=== PATIENT | female | born 1985 | race Caucasian/White ===

== ENCOUNTER 2018-06-28 12:06 | Inpatient (IN) ==
[2018-06-28] MEDS ORDERED: Vancomycin Inj 1 GM/200 ML PIGGYBACK IV.SIG ONE (12:53)
[2018-06-28] MEDS ORDERED: Piperacil/Tazo 4.5 GM Premix 4.5 GM/100 ML BAG IV.SIG ONE (12:53)
[2018-06-28] MEDS ORDERED: Vancomycin Inj 1,000 MG in Sodium Chlor 0.9% Inj 250 ML IV.SIG ONE (13:15)
[2018-06-28 13:29] LABS: Baso # (Auto) 0.1 th/mm3 (0.0-0.2); Baso % (Auto) 0.3 % (0.0-2.0); Eos % (Auto) 0.1 % (0.0-4.0); Hematocrit 40.8 % (35.0-46.0); Hemoglobin 13.7 gm/dL (11.6-15.3); Lymph # (Auto) 1.4 th/mm3 (1.0-4.8); Lymph % (Auto) 4.9 % (9.0-44.0); Mean Corpuscular HGB Conc 33.5 % (32.0-36.0); Mean Corpuscular Hemoglobin 30.8 pg (27.0-34.0); Mean Corpuscular Volume 91.9 fL (80.0-100.0); Mean Platelet Volume 6.8 fL (7.0-11.0); Mono # (Auto) 1.3 th/mm3 (0.0-0.9); Mono % (Auto) 4.6 % (0.0-8.0); Neut # (Auto) 25.6 th/mm3 (1.8-7.7); Neut % (Auto) 90.1 % (16.0-70.0); Platelet Count 223 th/mm3 (150-450); Red Blood Count 4.44 mil/mm3 (4.00-5.30); Red Cell Distribution Width 13.7 % (11.6-17.2); White Blood Count 28.4 th/mm3 (4.0-11.0)
--- NOTE | 2018-06-28 13:49 | XR ---
EXAM DATE: 06/28/2018 12:52 PM EDT AGE/SEX: 33 years / Female INDICATIONS: Chest pain. CLINICAL DATA: This is the patient's initial encounter. Patient reports that signs and symptoms have been present for 1 day and indicates a pain score of 5/10. MEDICAL/SURGICAL HISTORY: None. None. COMPARISON: [facility] [place], CHEST SINGLE AP, 02/17/2015. . FINDINGS: A single AP view of the chest demonstrates the lungs to be symmetrically aerated without evidence of mass, infiltrate or effusion. The cardiomediastinal contours are unremarkable. Osseous structures a re intact. CONCLUSION: No acute intrathoracic disease. No significant change. Electronically signed by: Shiraz De La Cruz MD 06/28/2018 1:48 PM EDT
[2018-06-28 13:51] LABS: Alanine Aminotransferase 15 U/L (10-53); Alkaline Phosphatase 96 U/L (45-117); Total Protein 8.4 g/dL (6.4-8.2)
[2018-06-28 13:54] LABS: Albumin 3.7 g/dL (3.4-5.0); Anion Gap 4 meq/L (5-15); Aspartate Aminotransferase 17 U/L (15-37); Blood Urea Nitrogen 11 mg/dL (7-18); Calcium 9.2 mg/dL (8.5-10.1); Carbon Dioxide 25.9 meq/L (21.0-32.0); Chloride 100 meq/L (98-107); Glomerular Filtration Rate 73 mL/min (>89); Glucose,Random 112 mg/dL (74-106); Potassium 4.2 meq/L (3.5-5.1); Sodium 130 meq/L (136-145)
--- NOTE | 2018-06-28 13:55 | ED ---
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 She states that she had injected at the site a few days prior. She also also noticed some scabs on her face which have popped up over the past few days. No chest pain no shortness of breath no abdominal pain no nausea vomiting. States the pain is rapidly worsening, severe, worsens with weightbearing, so she signs symptoms in context as above. Related Data Home Medications Medication Instructions Recorded Confirmed No Known Home Medications 06/28/18 06/28/18 Allergies Allergy/AdvReac Type Severity Reaction Status Date / Time *MDRO Multi-Drug Resistant AdvReac Unknown Uncoded 07/16/16 18:52 Organism Review of Systems ROS: all other systems reviewed are negative PMFSH Medical History Medical History Patient denies medical problems (Acute) Social History Social History Substance History: No History of Abuse Second Hand Smoke Exposure: No Smoking Status: Current every day smoker Tobacco Type: Cigarettes How Often Do You Have a Drink Containing Alcohol: Never Recent Travel in [facility] within the Last 8 Weeks: No Recent Out of Country Travel within the Last 8 Weeks: No Substance Abuse Detail Marijuana: Substance Use Status: Active Route Used 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 Nontoxic in appearance. SKIN: Focused skin assessment warm/dry. Patient has several scabbed nondraining lesions of the knees. Undetermined significance. HEAD: Atraumatic. Normocephalic. EYES: Pupils equal and round. No scleral icterus. No injection or drainage. ENT: No nasal bleeding or discharge. Mucous membranes pink and moist. NECK: Trachea midline. No JVD. CARDIOVASCULAR: Regular rate and rhythm. No murmur appreciated. RESPIRATORY: No accessory muscle use. Clear to auscultation. Breath sounds equal bilaterally. GASTROINTESTINAL: Abdomen soft, non-tender, nondistended. Hepatic and splenic margins not palpable. MUSCULOSKELETAL: No obvious deformities. No clubbing. No cyanosis. Patient's examination of her left ankle is very limited by her pain, she appears comfortable until is palpated. She has what appears to be significant joint effusion, the ankle joint itself is concentrically swollen, red concentrically as well. I do not see any discrete abscess or drainable fluid collection. No skin opening. No lymphadenitis or lymphangitis seen proximal to the ankle. The foot is also swollen as well minimally so probably reactive from the ankle. NEUROLOGICAL: Awake and alert. No obvious cranial nerve deficits. Motor grossly within normal limits. Normal speech. PSYCHIATRIC: Appropriate mood and affect; insight and judgment normal. Course Initial Documented Vital Signs Temperature 98.8 F 06/28/18 12:17 Pulse Rate 113 H 06/28/18 12:17 Respiratory Rate 24 06/28/18 12:17 Blood Pressure 115/75 06/28/18 12:17 Pulse Oximetry 100 06/28/18 12:17 Last Documented Vital Signs Temperature 98.8 F 06/28/18 12:17 Pulse Rate 113 H 06/28/18 12:17 Respiratory Rate 24 06/28/18 12:17 Blood Pressure 115/75 06/28/18 12:17 Pulse Oximetry 100 06/28/18 12:17 Critical Care Time Critical Care Time: Yes Total Critical Care Time: 35 Attestation: Aggregate critical care time was 35 minutes. Time to perform other separately billable procedures was not included in the critical care time. My time did not include minutes spent treating any other patients simultaneously or on activities that did not directly contribute to the patient's treatment. The services I provided to this patient were to treat and/or prevent clinically significant deterioration that could result in: , disability, organ failure I provided critical care services requiring my management, as noted below: Chart data review, documentation time, medication orders and management, vital sign assessments/reviewing monitor data, ordering and reviewing lab tests, ordering and interpreting/reviewing x-rays and diagnostic studies, care of the patient and discussion of the patient with the admitting physicians. Medical Decision Making MDM Narrative Medical decision making narrative: Patient room to the emergency department, given the physical exam findings highly suspect a septic ankle joint. There is no safe approach to this joint in the emergency department is concentrically cellulitic. She was started on Vanco and Zosyn, osteomyelitis is also on the differential as well as bacteremia. Patient has a 28,000 white count adding further credence to the above differentials, she will be admitted will need for patience as well as infectious disease consult, blood cultures drawn, lactic acid negative. She is technically septic is both tachycardic and tachypneic, liter normal saline has been ordered. Aggressive fluid resuscitation irrigated by the normal blood pressure and lactic acid. Patient discussed with Dr. Stauffer, podiatry, agrees with management thus far including MRI vancomycin Zosyn. She was see the patient either late tonight or early tomorrow morning. We will discussed with residents for admission. Medical Screen Exam Complete: Yes Emergency Medical Condition: Yes Lab Data Result diagrams: 06/28/18 13:15 06/28/18 13:15 POC Results POC Urine Results Negative Lab Results 06/28/18 06/28/18 06/28/18 Range/Units 13:12 13:15 13:15 WBC 28.4 H (4.0-11.0) th/mm3 RBC 4.44 (4.00-5.30) mil/mm3 Hgb 13.7 (11.6-15.3) gm/dL Hct 40.8 (35.0-46.0) % MCV 91.9 (80.0-100.0) fL MCH 30.8 (27.0-34.0) pg MCHC 33.5 (32.0-36.0) % RDW 13.7 (11.6-17.2) % Plt Count 223 (150-450) th/mm3 MPV 6.8 L (7.0-11.0) fL Neut % (Auto) 90.1 H (16.0-70.0) % Lymph % (Auto) 4.9 L (9.0-44.0) % Stephenson % (Auto) 4.6 (0.0-8.0) % Eos % (Auto) 0.1 (0.0-4.0) % Baso % (Auto) 0.3 (0.0-2.0) % Neut # (Auto) 25.6 H (1.8-7.7) th/mm3 Lymph # (Auto) 1.4 (1.0-4.8) th/mm3 Stephenson # (Auto) 1.3 H (0.0-0.9) th/mm3 Eos # (Auto) 0.0 (0.0-0.4) th/mm3 Baso # (Auto) 0.1 (0.0-0.2) th/mm3 WBC Differential . Differential Comment Auto diff final Sodium 130 L (136-145) meq/L Potassium 4.2 (3.5-5.1) meq/L Chloride 100 (98-107) meq/L Carbon Dioxide 25.9 (21.0-32.0) meq/L Anion Gap 4 L (5-15) meq/L BUN 11 (7-18) mg/dL Creatinine 0.89 (0.50-1.00) mg/dL Estimated GFR 73 L (>89) mL/min POC Glucose (68-110) mg/dl Random Glucose 112 H (74-106) mg/dL Lactic Acid 1.0 (0.4-2.0) mmol/L Calcium 9.2 (8.5-10.1) mg/dL Total Bilirubin 1.3 H (0.2-1.0) mg/dL AST 17 (15-37) U/L ALT 15 (10-53) U/L Alkaline Phosphatase 96 (45-117) U/L Total Protein 8.4 H (6.4-8.2) g/dL Albumin 3.7 (3.4-5.0) g/dL 06/28/18 Range/Units 14:05 WBC (4.0-11.0) th/mm3 RBC (4.00-5.30) mil/mm3 Hgb (11.6-15.3) gm/dL Hct (35.0-46.0) % MCV (80.0-100.0) fL MCH (27.0-34.0) pg MCHC (32.0-36.0) % RDW (11.6-17.2) % Plt Count (150-450) th/mm3 MPV (7.0-11.0) fL Neut % (Auto) (16.0-70.0) % Lymph % (Auto) (9.0-44.0) % Stephenson % (Auto) (0.0-8.0) % Eos % (Auto) (0.0-4.0) % Baso % (Auto) (0.0-2.0) % Neut # (Auto) (1.8-7.7) th/mm3 Lymph # (Auto) (1.0-4.8) th/mm3 Stephenson # (Auto) (0.0-0.9) th/mm3 Eos # (Auto) (0.0-0.4) th/mm3 Baso # (Auto) (0.0-0.2) th/mm3 WBC Differential Differential Comment Sodium (136-145) meq/L Potassium (3.5-5.1) meq/L Chloride (98-107) meq/L Carbon Dioxide (21.0-32.0) meq/L Anion Gap (5-15) meq/L BUN (7-18) mg/dL Creatinine (0.50-1.00) mg/dL Estimated GFR (>89) mL/min POC Glucose 194 H (68-110) mg/dl Random Glucose (74-106) mg/dL Lactic Acid (0.4-2.0) mmol/L Calcium (8.5-10.1) mg/dL Total Bilirubin (0.2-1.0) mg/dL AST (15-37) U/L ALT (10-53) U/L Alkaline Phosphatase (45-117) U/L Total Protein (6.4-8.2) g/dL Albumin (3.4-5.0) g/dL Imaging Data Radiologist's impression: Ankle MRI 06/28/18 12:52 CONCLUSION: 1. Diffuse nonspecific soft tissue swelling and edema predominantly involving the anterior, medial and lateral aspects of the ankle. 2. The bony structures and tendons are grossly intact. Chest X-Ray 06/28/18 12:52 CONCLUSION: No acute intrathoracic disease. No significant change. Discharge Plan Discharge Disposition Patient Disposition: 30 Still Patient Discharge Details Diagnosis: Sepsis, Septic arthritis Physicians Team ED Provider: Remi Escobar Primary Care Provider: Primary Care Tee,Debby Attending Provider: Josué Sen Other Providers: Ana Stauffer Status ED Status: Admitted Patient
[2018-06-28] MEDS ORDERED: Gadobutrol PF 7.5 MMOL/7.5 ML Vial (for RAD) IV.SIG ONE (14:13)
[2018-06-28] MEDS ORDERED: Sod Chloride 0.9% Inj 1,000 ML IV.SIG SCH (14:45)
--- NOTE | 2018-06-28 15:26 | MR ---
EXAM DATE: 06/28/2018 1:55 PM EDT AGE/SEX: 33 years / Female INDICATIONS: Abscess. CLINICAL DATA: This is the patient's initial encounter. Patient reports that signs and symptoms have been present for 1 day and indicates a pain score of 5/10. MEDICAL/SURGICAL HISTORY: None. None. COMPARISON: No prior exams available for comparison. TECHNIQUE: Multiplanar, multisequence MRI examination was performed with contrast and after the intr avenous administration of 6 ml Gadavist (gadobutrol) contrast as a single exam dose. FINDINGS: Bones: The osseous structures are in normal alignment. No evidence of fracture or bony edema. Joint Spaces: No joint effusion.. The articular cartilage is intact. Tendons: The tendons surrounding the ankle are grossly intact. Ligaments: The lateral and medial ligament complexes are intact. Other: The plantar aponeurosis is grossly unremarkable. The structures in the tarsal tunnel are int act. Soft Tissues: There is nonspecific soft tissue swelling and edema in the subcutaneous soft tissues p redominantly along the anterior lateral medial aspects of the ankle. No definite or significant locul ated fluid collections are seen to suggest a drainable abscess. CONCLUSION: 1. Diffuse nonspecific soft tissue swelling and edema predominantly involving the anterior, medial a nd lateral aspects of the ankle. 2. The bony structures and tendons are grossly intact. Electronically signed by: Shiraz De La Cruz MD 06/28/2018 3:25 PM EDT
[2018-06-28] MEDS ORDERED: Acetaminophen 325 MG Tablet PO PRN (15:37)
[2018-06-28] MEDS: Sod Chloride 0.9% Inj 1,000 ML IV.CONT SCH (15:57)
[2018-06-28] MEDS ORDERED: Vancomycin Consult Pharmacy OTHER PRN (16:16)
--- NOTE | 2018-06-28 18:43 | P.HPFP ---
History of Present Illness Primary Care Physician: No Primary Care Physician <Josué Sen - 06/28/18 21:23> No Primary Care Physician <Robert Peterson - 06/28/18 18:43> Chief Complaint: Ankle pain and swelling <Robert Peterson - 06/28/18 18: 43> History of Present Illness: Patient is a 33-year-old female with a history of IV drug abuse who presents with left ankle pain and swelling after an phentermine into a vein in that ankle. 2 days prior to admission she injected methamphetamine into the vein on her left anterior ankle. Starting this morning she has had increasing pain and swelling. She rates her pain as a 10 out of 10 at this time. Pain is exacerbated by motion, pressure, and movement. She has not found anything that relieves her pain. She states that she cannot move the ankle or toes secondary to pain. She denies numbness or tingling. She does report being cold since arrival to the hospital, but did not denies fever, chills, and night sweats. She denies chest pain, shortness of breath, palpitations, nausea, vomiting. She reports a history of staph infection that led to a hospital stay in the past. She also had bacteremia that led to a 4-1/2-week hospital stay shortly thereafter. She reports testing positive for hepatitis C. She has not had any treatment for this. Her last HIV test was about 2 years ago and was negative. She denies any surgical history. She smokes 4-5 cigarettes/day, denies alcohol use, and uses IV methamphetamine and heroin. <Robert Peterson - 06/28/18 18:43> - Diagnosis (1) Septic arthritis (2) Sepsis (3) IV drug abuse (4) Hepatitis C <Josué Sen - 06/28/18 21:23> (1) Septic arthritis (2) Sepsis (3) IV drug abuse (4) Hepatitis C <Robert Peterson - 06/28/18 18:14> Inpatient Certification: I certify that the inpatient services were ordered in accordance with Medicare regulations governing the order. This includes certification that hospital inpatient services are reasonable and necessary and in the case of services not specified as inpatient-only under 42 CFR 419.22(n), that they are appropriately provided as inpatient services in accordance to with the 2-midnight benchmark under 43 CFR 412.3(e) <Josué Sen 06/28/18 21:23> I certify that the inpatient services were ordered in accordance with Medicare regulations governing the order. This includes certification that hospital inpatient services are reasonable and necessary and in the case of services not specified as inpatient-only under 42 CFR 419.22(n), that they are appropriately provided as inpatient services in accordance to with the 2-midnight benchmark under 43 CFR 412.3(e) <Robert Peterson 06/28/18 18:43> Estimated Total Length of Stay (Days): 2 <Robert Peterson 06/28/18 18: 43> Plans for Post Hospital Care: Home <Robert Peterson 06/28/18 18:43> Review of Systems Constitutional: Denies body ache(s), Denies chills, Denies fatigue, Denies fever (s), Denies night sweats <Robert Peterson 06/28/18 18:43> Eyes: Denies change in vision <Robert Peterson 06/28/18 18:43> Ears, Nose, Mouth, and Throat: Denies abnormal hearing <Robert Peterson 06/28/18 18:43> Cardiovascular: Denies chest pain, Denies rapid, pounding, or irregular heartbeat <Robert Peterson 06/28/18 18:43> Respiratory: Denies shortness of breath <Robert Peterson 06/28/18 18:43 > Gastrointestinal: Denies abdominal pain, Denies change in bowel habits, Denies nausea, Denies vomiting <Robert Peterson 06/28/18 18:43> PMFSH - History History Provided By: Patient <Robert Peterson 06/28/18 18:43> - Medical History Medical History: Medical History (Last Updated 06/28/18 @ 12:30 by Jenifer Del Rosario) Patient denies medical problems <Josué Sen 06/28/18 21:23> Medical History (Last Updated 06/28/18 @ 12:30 by Jenifer Del Rosario) Patient denies medical problems <Robert Peterson 06/28/18 18:43> - Tobacco History Second Hand Smoke Exposure: No <Robert Peterson 06/28/18 18:43> Tobacco Use In Past 30 Days: Yes <Robert Peterson 06/28/18 18:43> Smoking Status: Current every day smoker <Robert Peterson 06/28/18 18: 43> Tobacco Type: Cigarettes <Robert Peterson 06/28/18 18:43> - Alcohol History How Often Do You Have a Drink Containing Alcohol: Never <Robert Peterson 06/28/18 18:43> - Substance Use History Substance History: No History of Abuse <Robert Peterson 06/28/18 18:43> - Substance Use Type Marijuana Status: Active <Robert Peterson 06/28/18 18:43> Route Used: By Mouth <Robert Peterson 06/28/18 18:43> Methamphetamine Status: Active <Robert Peterson 06/28/18 18:43> - Travel History Recent Travel in the [place] Within the Last 8 Weeks: No <Robert Peterson 06/28/18 18:43> Recent Travel Out of the Country Within the Last 8 Weeks: No <Robert Peterson 06/28/18 18:43> - Immunization History Tetanus Immunization: Unsure <Robert Peterson 06/28/18 18:43> Medications and Allergies Allergies Allergy/AdvReac Type Severity Reaction Status Date / Time *MDRO Multi-Drug Resistant AdvReac Unknown Uncoded 07/16/16 18:52 Organism <Josué Sen 06/28/18 21:23> Home Medications Medication Instructions Recorded Confirmed Type No Known Home Medications 06/28/18 06/28/18 History <Josué Sen 06/28/18 21:23> Active Medications: Active Medications Acetaminophen (Tylenol) 650 mg PO Q4H PRN PRN Reason: Temp > 100.4 Sodium Chloride (Ns Inj) 1,000 mls @ 100 mls/hr IV.CONT .Q10H CL Last Admin: 06/28/18 15:57 Dose: 100 mls/hr Piperacillin/Tazobactam/Dextrose (Zosyn 4.5 Gm Premix) 4.5 gm in 100 mls @ 200 mls/hr IV.SIG Q6H CL Vancomycin HCl 1,000 mg/ (Sodium Chloride) 250 mls @ 250 mls/hr IV.SIG Q12H CL Miscellaneous Information ([facility] Ordered Lab Info) 0 each OTHER ONCE ONE Stop: 06/30/18 13:46 Morphine Sulfate (Morphine Inj) 2 mg IV.PUSH Q3H PRN PRN Reason: PAIN SCALE 6 TO 10 Ondansetron HCl (Zofran Inj) 4 mg IV.PUSH Q6H PRN PRN Reason: NAUSEA OR VOMITING Pharmacy Profile Note (Vancomycin Consult Pharmacy) 1 each OTHER UNSCH PRN PRN Reason: Pharmacy to dose <Josué Sen - 06/28/18 21:23> Active Medications Acetaminophen (Tylenol) 650 mg PO Q4H PRN PRN Reason: Temp > 100.4 Sodium Chloride (Ns Inj) 1,000 mls @ 100 mls/hr IV.CONT .Q10H CL Last Admin: 06/28/18 15:57 Dose: 100 mls/hr Piperacillin/Tazobactam/Dextrose (Zosyn 4.5 Gm Premix) 4.5 gm in 100 mls @ 200 mls/hr IV.SIG Q6H CL Vancomycin HCl 1,000 mg/ (Sodium Chloride) 250 mls @ 250 mls/hr IV.SIG Q12H CL Miscellaneous Information ([facility] Ordered Lab Info) 0 each OTHER ONCE ONE Stop: 06/30/18 13:46 Ondansetron HCl (Zofran Inj) 4 mg IV.PUSH Q6H PRN PRN Reason: NAUSEA OR VOMITING Pharmacy Profile Note (Vancomycin Consult Pharmacy) 1 each OTHER UNSCH PRN PRN Reason: Pharmacy to dose <Robert Peterson - 06/28/18 18:43> Exam Vital signs: Vital Signs 06/28/18 12:17 06/28/18 15:54 06/28/18 16:00 Temperature 98.8 F Pulse Rate 113 H Respiratory Rate 24 Blood Pressure 115/75 Pulse Oximetry 100 97 97 06/28/18 16:05 06/28/18 20:32 Temperature Pulse Rate 98 H Respiratory Rate 18 Blood Pressure 102/63 Pulse Oximetry 97 Intake & Output 06/28/18 06/28/18 06/29/18 06:59 18:59 06:59 Intake Total 350 / 350 Balance 350 / 350 Weight 61.235 kg Intake: IV 350 / 350 Zosyn 4.5 GM Premix 4.5 gm In 100 / 100 100 ml @ 200 mls/hr IV.SIG ONCE ONE Rx#:[id number] Vancomycin Inj 1,000 MG In NS 250 / 250 Inj 250 ML @ 200 mls/hr IV.SIG ONCE ONE Rx#:[id number] Other: Other Intake Source Saline Solution <Josué Sen - 06/28/18 21:23> Vital Signs 06/28/18 12:17 06/28/18 15:54 06/28/18 16:00 Temperature 98.8 F Pulse Rate 113 H Respiratory Rate 24 Blood Pressure 115/75 Pulse Oximetry 100 97 97 06/28/18 16:05 Temperature Pulse Rate 98 H Respiratory Rate 18 Blood Pressure 102/63 Pulse Oximetry Intake & Output 06/27/18 06/28/18 06/28/18 18:59 06:59 18:59 Intake Total 350 / 350 Balance 350 / 350 Weight 61.235 kg Intake: IV 350 / 350 Zosyn 4.5 GM Premix 4.5 gm In 100 / 100 100 ml @ 200 mls/hr IV.SIG ONCE ONE Rx#:[id number] Vancomycin Inj 1,000 MG In NS 250 / 250 Inj 250 ML @ 200 mls/hr IV.SIG ONCE ONE Rx#:[id number] Other: Other Intake Source Saline Solution <Robert Peterson - 06/28/18 18:43> Narrative: General: Well-developed, alert, and in no acute distress. Appears stated age HEENT: Atraumatic, PERRL, non-icteric sclera and no conjunctival injection, moist mucous membranes. Multiple excoriations on face Neck: Supple, non-tender without masses or lymphadenopathy, trachea midline Cardiac: Regular rate and rhythm without murmurs Pulmonary: Non-labored breathing. Lungs clear to auscultation bilaterally with good air movement Abdomen: Normal bowel sounds, soft and non-tender without rebound or guarding Extremities: Capillary refill less than 2 seconds bilaterally. Concentric, tense erythema and edema to the left ankle. Unable to assess movement of the ankle and foot secondary to pain. <Robert Peterson - 06/28/18 18:43> Results - Labs Result diagrams: 06/28/18 13:15 06/28/18 13:15 <Josué Sen - 06/28/18 21:23> Abnormal lab results 06/28/18 06/28/18 06/28/18 Range/Units 13:15 13:15 13:15 WBC 28.4 H (4.0-11.0) th/mm3 MPV 6.8 L (7.0-11.0) fL Neut % (Auto) 90.1 H (16.0-70.0) % Lymph % (Auto) 4.9 L (9.0-44.0) % Neut # (Auto) 25.6 H (1.8-7.7) th/mm3 Hardin # (Auto) 1.3 H (0.0-0.9) th/mm3 Sodium 130 L (136-145) meq/L Anion Gap 4 L (5-15) meq/L Estimated GFR 73 L (>89) mL/min POC Glucose (68-110) mg/dl Random Glucose 112 H (74-106) mg/dL Total Bilirubin 1.3 H (0.2-1.0) mg/dL C-Reactive Protein 16.00 H (0.00-0.30) mg/dL Total Protein 8.4 H (6.4-8.2) g/dL 06/28/18 Range/Units 14:05 WBC (4.0-11.0) th/mm3 MPV (7.0-11.0) fL Neut % (Auto) (16.0-70.0) % Lymph % (Auto) (9.0-44.0) % Neut # (Auto) (1.8-7.7) th/mm3 Hardin # (Auto) (0.0-0.9) th/mm3 Sodium (136-145) meq/L Anion Gap (5-15) meq/L Estimated GFR (>89) mL/min POC Glucose 194 H (68-110) mg/dl Random Glucose (74-106) mg/dL Total Bilirubin (0.2-1.0) mg/dL C-Reactive Protein (0.00-0.30) mg/dL Total Protein (6.4-8.2) g/dL Short CBC 06/28/18 Range/Units 13:15 WBC 28.4 H (4.0-11.0) th/mm3 Hgb 13.7 (11.6-15.3) gm/dL Hct 40.8 (35.0-46.0) % Plt Count 223 (150-450) th/mm3 BMP 06/28/18 13:15 Sodium 130 L Potassium 4.2 Chloride 100 Carbon Dioxide 25.9 BUN 11 Creatinine 0.89 Calcium 9.2 Liver Function 06/28/18 Range/Units 13:15 Total Bilirubin 1.3 H (0.2-1.0) mg/dL AST 17 (15-37) U/L ALT 15 (10-53) U/L Alkaline Phosphatase 96 (45-117) U/L Albumin 3.7 (3.4-5.0) g/dL <Josué Sen - 06/28/18 21:23> Abnormal lab results 06/28/18 06/28/18 06/28/18 Range/Units 13:15 13:15 13:15 WBC 28.4 H (4.0-11.0) th/mm3 MPV 6.8 L (7.0-11.0) fL Neut % (Auto) 90.1 H (16.0-70.0) % Lymph % (Auto) 4.9 L (9.0-44.0) % Neut # (Auto) 25.6 H (1.8-7.7) th/mm3 Hardin # (Auto) 1.3 H (0.0-0.9) th/mm3 Sodium 130 L (136-145) meq/L Anion Gap 4 L (5-15) meq/L Estimated GFR 73 L (>89) mL/min POC Glucose (68-110) mg/dl Random Glucose 112 H (74-106) mg/dL Total Bilirubin 1.3 H (0.2-1.0) mg/dL C-Reactive Protein 16.00 H (0.00-0.30) mg/dL Total Protein 8.4 H (6.4-8.2) g/dL 06/28/18 Range/Units 14:05 WBC (4.0-11.0) th/mm3 MPV (7.0-11.0) fL Neut % (Auto) (16.0-70.0) % Lymph % (Auto) (9.0-44.0) % Neut # (Auto) (1.8-7.7) th/mm3 Hardin # (Auto) (0.0-0.9) th/mm3 Sodium (136-145) meq/L Anion Gap (5-15) meq/L Estimated GFR (>89) mL/min POC Glucose 194 H (68-110) mg/dl Random Glucose (74-106) mg/dL Total Bilirubin (0.2-1.0) mg/dL C-Reactive Protein (0.00-0.30) mg/dL Total Protein (6.4-8.2) g/dL Short CBC 06/28/18 Range/Units 13:15 WBC 28.4 H (4.0-11.0) th/mm3 Hgb 13.7 (11.6-15.3) gm/dL Hct 40.8 (35.0-46.0) % Plt Count 223 (150-450) th/mm3 BMP 06/28/18 13:15 Sodium 130 L Potassium 4.2 Chloride 100 Carbon Dioxide 25.9 BUN 11 Creatinine 0.89 Calcium 9.2 Liver Function 06/28/18 Range/Units 13:15 Total Bilirubin 1.3 H (0.2-1.0) mg/dL AST 17 (15-37) U/L ALT 15 (10-53) U/L Alkaline Phosphatase 96 (45-117) U/L Albumin 3.7 (3.4-5.0) g/dL <Robert Peterson - 06/28/18 18:43> - Imaging Impressions Ankle MRI 06/28/18 12:52 CONCLUSION: 1. Diffuse nonspecific soft tissue swelling and edema predominantly involving the anterior, medial and lateral aspects of the ankle. 2. The bony structures and tendons are grossly intact. Chest X-Ray 06/28/18 12:52 CONCLUSION: No acute intrathoracic disease. No significant change. <Josué Sen - 06/28/18 21:23> Impressions Ankle MRI 06/28/18 12:52 CONCLUSION: 1. Diffuse nonspecific soft tissue swelling and edema predominantly involving the anterior, medial and lateral aspects of the ankle. 2. The bony structures and tendons are grossly intact. Chest X-Ray 06/28/18 12:52 CONCLUSION: No acute intrathoracic disease. No significant change. <Robert Peterson - 06/28/18 18:43> Caprini VTE Risk Assessment Caprini VTE Risk Assessment: Moderate/High Risk (score >= 2) <Robert Peterson - 06/28/18 18:43> VTE Mechanical Exception: LE injury/wound <Robert Peterson - 06/28/18 18: 43> Caprini Risk Assessment Model: Point Value = 1 Point Value = 2 Point Value = 3 Point Value = 5 Age 41-60 Minor surgery BMI > 25 kg/m2 Swollen legs Varicose veins or History of unexplained or recurrent spontaneous Oral contraceptives or hormone replacement Sepsis (< 1 month) Serious lung disease, including pneumonia (< 1 month) Abnormal pulmonary function Acute myocardial infarction Congestive heart failure (< 1 month) History of inflammatory bowel disease Medical patient at bed rest Age 61-74 Arthroscopic surgery Major open surgery (> 45 min) Laparoscopic surgery (> 45 min) Malignancy Confined to bed (> 72 hours) Immobilizing plaster cast Central venous access Age >= 75 History of VTE Family history of VTE Factor V Leiden Prothrombin [id number] Lupus anticoagulant Anticardiolipin antibodies Elevated serum homocysteine Heparin-induced thrombocytopenia Other congenital or acquired thrombophilia Stroke (< 1 month) Elective arthroplasty Hip, pelvis, or leg fracture Acute spinal cord injury (< 1 month) <Josué Sen - 06/28/18 21:23> Point Value = 1 Point Value = 2 Point Value = 3 Point Value = 5 Age 41-60 Minor surgery BMI > 25 kg/m2 Swollen legs Varicose veins or History of unexplained or recurrent spontaneous Oral contraceptives or hormone replacement Sepsis (< 1 month) Serious lung disease, including pneumonia (< 1 month) Abnormal pulmonary function Acute myocardial infarction Congestive heart failure (< 1 month) History of inflammatory bowel disease Medical patient at bed rest Age 61-74 Arthroscopic surgery Major open surgery (> 45 min) Laparoscopic surgery (> 45 min) Malignancy Confined to bed (> 72 hours) Immobilizing plaster cast Central venous access Age >= 75 History of VTE Family history of VTE Factor V Leiden Prothrombin [id number] Lupus anticoagulant Anticardiolipin antibodies Elevated serum homocysteine Heparin-induced thrombocytopenia Other congenital or acquired thrombophilia Stroke (< 1 month) Elective arthroplasty Hip, pelvis, or leg fracture Acute spinal cord injury (< 1 month) <Robert Peterson J - 06/28/18 18:43> Prophylaxis Regimen: Total Risk Factor Score Risk Level Prophylaxis Regimen 0-1 Low Early ambulation 2 Moderate Order ONE of the following: *Sequential Compression Device (SCD) *Heparin 5000 units SQ BID 3-4 Higher Order ONE of the following medications: *Heparin 5000 units SQ TID *Enoxaparin/Lovenox 40 mg SQ daily (WT < 150 kg, CrCl > 30 mL/min) *Enoxaparin/Lovenox 30 mg SQ daily (WT < 150 kg, CrCl > 10-29 mL/min) *Enoxaparin/Lovenox 30 mg SQ BID (WT < 150 kg, CrCl > 30 mL/min) AND/OR *Sequential Compression Device (SCD) 5 or more Highest Order ONE of the following medications: *Heparin 5000 units SQ TID (Preferred with Epidurals) *Enoxaparin/Lovenox 40 mg SQ daily (WT < 150 kg, CrCl > 30 mL/min) *Enoxaparin/Lovenox 30 mg SQ daily (WT < 150 kg, CrCl > 10-29 mL/min) *Enoxaparin/Lovenox 30 mg SQ BID (WT < 150 kg, CrCl > 30 mL/min) AND *Sequential Compression Device (SCD) <Josué Sen K - 06/28/18 21:23> Total Risk Factor Score Risk Level Prophylaxis Regimen 0-1 Low Early ambulation 2 Moderate Order ONE of the following: *Sequential Compression Device (SCD) *Heparin 5000 units SQ BID 3-4 Higher Order ONE of the following medications: *Heparin 5000 units SQ TID *Enoxaparin/Lovenox 40 mg SQ daily (WT < 150 kg, CrCl > 30 mL/min) *Enoxaparin/Lovenox 30 mg SQ daily (WT < 150 kg, CrCl > 10-29 mL/min) *Enoxaparin/Lovenox 30 mg SQ BID (WT < 150 kg, CrCl > 30 mL/min) AND/OR *Sequential Compression Device (SCD) 5 or more Highest Order ONE of the following medications: *Heparin 5000 units SQ TID (Preferred with Epidurals) *Enoxaparin/Lovenox 40 mg SQ daily (WT < 150 kg, CrCl > 30 mL/min) *Enoxaparin/Lovenox 30 mg SQ daily (WT < 150 kg, CrCl > 10-29 mL/min) *Enoxaparin/Lovenox 30 mg SQ BID (WT < 150 kg, CrCl > 30 mL/min) AND *Sequential Compression Device (SCD) <Robert Peterson - 06/28/18 18:43> Assessment and Plan - Assessment (1) Septic arthritis Code(s): M00.9 - Pyogenic arthritis, unspecified Status: Acute (2) Sepsis Code(s): A41.9 - Sepsis, unspecified organism Status: Acute (3) IV drug abuse Code(s): F19.10 - Other psychoactive substance abuse, uncomplicated Status: Acute (4) Hepatitis C Code(s): B19.20 - Unspecified viral hepatitis C without hepatic coma Status: Acute <Josué Sen Mike - 06/28/18 21:23> (1) Septic arthritis Code(s): M00.9 - Pyogenic arthritis, unspecified Status: Acute (2) Sepsis Code(s): A41.9 - Sepsis, unspecified organism Status: Acute (3) IV drug abuse Code(s): F19.10 - Other psychoactive substance abuse, uncomplicated Status: Acute (4) Hepatitis C Code(s): B19.20 - Unspecified viral hepatitis C without hepatic coma Status: Acute <Robert Peterson - 06/28/18 18:14> - Assessment and Plan Cellulitis/septic ankle/Sepsis -MRI showed anterior, lateral, and medial inflammation -Leukocytosis of 28 and heart rate greater than 90, meet SIRS criteria with likely source -Podiatry has been consulted -Continue Vanco and Zosyn started in the ED -Morphine 2 mg IV every 3 hours as needed for pain -Fluids as below due to potential sepsis -Blood cultures drawn in the ED IV drug abuse -History noticeable for methamphetamine and heroin use -HIV testing ordered Hepatitis C -Tested positive at prior hospitalization -LFTs normal today -Hepatitis panel ordered Fluids: Normal saline at 100 cc/h Electrolytes: monitor and replete as needed Nutrition: NPO until cleared by podiatry GI prophylaxis: not indicated VTE prophylaxis: No pharmacologic prophylaxis at this time due to potential intervention by podiatry. SCD on right leg. Disposition: Case management for possible rehab from [facility] <NicholasRobert J - 06/28/18 18:43> - Attending Attestation The exam, history, and the medical decision-making described in the above note were completed with the assistance of the resident physician. I reviewed and agree with the findings presented. I attest that I had a [id number] encounter with the patient on the same day, and personally performed and documented my assessment and findings in the medical record. 33 yo F admitted for L ankle septic arthritis. exquisitely tender left ankle with visible injection sites elsewhere, very poor dentition, and many scabs crusting over face. hx of IVDU and infection at known recent injection site. MRI neg for osteo. on vanc/zosyn with podiatry consult pending (contacted from ED). Known HepC but no primary care at the moment. Will work with CM. <Josué Sen - 06/28/18 21:23>
[2018-06-28] MEDS: Piperacil/Tazo 4.5 GM Premix 4.5 GM/100 ML BAG IV.SIG SCH (21:52)
[2018-06-28] MEDS: Morphine Sulfate Inj 2 MG/ML Vial IV.PUSH PRN (22:09)
[2018-06-28 22:48] LABS: Hepatitis A IgM Antibody Nonreactive (Nonreactive); Hepatitits B Surface Antigen Nonreactive (Nonreactive)
[2018-06-29] MEDS: Sod Chloride 0.9% Inj 1,000 ML IV.CONT SCH ×4 (00:28→22:58)
[2018-06-29] MEDS: Morphine Sulfate Inj 2 MG/ML Vial IV.PUSH PRN ×8 (00:51→22:54)
[2018-06-29] MEDS: Vancomycin Inj 1,000 MG in Sodium Chlor 0.9% Inj 250 ML IV.SIG SCH ×2 (02:24→14:37)
[2018-06-29] MEDS: Piperacil/Tazo 4.5 GM Premix 4.5 GM/100 ML BAG IV.SIG SCH ×4 (02:24→19:38)
[2018-06-29 08:02] LABS: Baso % (Auto) 0.2 % (0.0-2.0); Eos # (Auto) 0.1 th/mm3 (0.0-0.4); Eos % (Auto) 0.3 % (0.0-4.0); Hematocrit 32.2 % (35.0-46.0); Lymph # (Auto) 1.1 th/mm3 (1.0-4.8); Lymph % (Auto) 4.5 % (9.0-44.0); Mean Corpuscular HGB Conc 34.1 % (32.0-36.0); Mean Corpuscular Hemoglobin 30.8 pg (27.0-34.0); Mean Corpuscular Volume 90.4 fL (80.0-100.0); Mean Platelet Volume 7.6 fL (7.0-11.0); Mono # (Auto) 1.5 th/mm3 (0.0-0.9); Mono % (Auto) 6.2 % (0.0-8.0); Neut % (Auto) 88.8 % (16.0-70.0); Platelet Count 192 th/mm3 (150-450); Red Blood Count 3.56 mil/mm3 (4.00-5.30); Red Cell Distribution Width 13.5 % (11.6-17.2); White Blood Count 23.7 th/mm3 (4.0-11.0)
[2018-06-29 08:35] LABS: Anion Gap 9 meq/L (5-15); Blood Urea Nitrogen 9 mg/dL (7-18); Calcium 8.5 mg/dL (8.5-10.1); Carbon Dioxide 22.5 meq/L (21.0-32.0); Chloride 105 meq/L (98-107); Glomerular Filtration Rate Greater Than 89 mL/min (>89); Glucose,Random 86 mg/dL (74-106); Potassium 3.7 meq/L (3.5-5.1); Sodium 136 meq/L (136-145)
--- NOTE | 2018-06-29 10:05 | ECG ---
Date Performed: 06/28/2018 Time Performed: 13:29:10 PTAGE: 33 years EKG: Sinus rhythm NORMAL ECG INTERPRETATION BASED ON A DEFAULT AGE OF 39 YEARS NO PREVIOUS TRACING DOCTOR: Lina Ruth Interpretating Date/Time 06/29/2018 10:03:07
[2018-06-29] MEDS ORDERED: Lidocaine 1% Inj 50 ML Vial ONE (10:09)
--- NOTE | 2018-06-29 10:55 | P.CON ---
History of Present Illness Service: Foot and ankle surgery/podiatry Consult date: 06/29/18 Primary Care Provider: No Primary Care Physician Family Provider: No Primary Care Physician Chief Complaint: Ankle pain and swelling History of Present Illness: History of IV drug use who presented to the emergency department with painful swollen left ankle. Patient states she had been injecting methamphetamine a few days ago. Patient states she noticed new scabbing to her face. She denies any nausea vomiting fevers or chills she does report extreme pain to left ankle. Review of Systems Constitutional: Denies chills, Denies fatigue, Denies fever(s), Denies night sweats Musculoskeletal: Reports joint pain, Reports joint swelling Comments: Joint swelling and joint pain to left ankle Skin/Breast: Reports changing lesions, Reports non-healing lesions PMFSH - History History Provided By: Patient - Medical History Medical History: Medical History (Last Reviewed 06/29/18 @ 10:50 by Ana Stauffer DPM) Patient denies medical problems - Tobacco History Second Hand Smoke Exposure: Yes Tobacco Use In Past 30 Days: Yes Smoking Status: Never smoker Tobacco Type: Cigarettes - Alcohol History How Often Do You Have a Drink Containing Alcohol: Never - Substance Use History Substance History: No History of Abuse, Active Abuse - Substance Use Type Marijuana Status: Active Route Used: By Mouth Methamphetamine Status: Active Heroin Status: Active Route Used: Intravenously Frequency: every day Last Used: today Reason for Use: Get High - Travel History Recent Travel in the [place] Within the Last 8 Weeks: No Recent Travel Out of the Country Within the Last 8 Weeks: No - Immunization History Tetanus Immunization: Unable to Assess Hx Influenza Vaccine This Season: No Medications and Allergies Active Medications: Active Medications Acetaminophen (Tylenol) 650 mg PO Q4H PRN PRN Reason: Temp > 100.4 Sodium Chloride (Ns Inj) 1,000 mls @ 100 mls/hr IV.CONT .Q10H CL Last Admin: 06/29/18 02:23 Dose: Not Given Piperacillin/Tazobactam/Dextrose (Zosyn 4.5 Gm Premix) 4.5 gm in 100 mls @ 200 mls/hr IV.SIG Q6H CL Last Infusion: 06/29/18 09:20 Dose: Infused Vancomycin HCl 1,000 mg/ (Sodium Chloride) 250 mls @ 250 mls/hr IV.SIG Q12H CL Last Infusion: 06/29/18 04:20 Dose: Infused Miscellaneous Information ([facility] [place] [facility] Ordered Lab Info) 0 each OTHER ONCE ONE Stop: 06/30/18 13:46 Morphine Sulfate (Morphine Inj) 2 mg IV.PUSH Q3H PRN PRN Reason: PAIN SCALE 6 TO 10 Last Admin: 06/29/18 07:25 Dose: 2 mg Ondansetron HCl (Zofran Inj) 4 mg IV.PUSH Q6H PRN PRN Reason: NAUSEA OR VOMITING Pharmacy Profile Note (Vancomycin Consult Pharmacy) 1 each OTHER UNSCH PRN PRN Reason: Pharmacy to dose Allergies Allergy/AdvReac Type Severity Reaction Status Date / Time *MDRO Multi-Drug Resistant AdvReac Unknown Uncoded 07/16/16 18:52 Organism Home Medications Medication Instructions Recorded Confirmed Type No Known Home Medications 06/28/18 06/28/18 History Physical Exam Vital signs: Vital Signs 06/28/18 12:17 06/28/18 15:54 06/28/18 16:00 Temperature 98.8 F Pulse Rate 113 H Respiratory Rate 24 Blood Pressure 115/75 Pulse Oximetry 100 97 97 06/28/18 16:05 06/28/18 20:00 06/28/18 20:32 Temperature 99.0 F Pulse Rate 98 H 101 H Respiratory Rate 18 18 Blood Pressure 102/63 94/55 L Pulse Oximetry 99 97 06/29/18 00:00 06/29/18 04:00 06/29/18 07:43 Temperature 98.4 F 98.2 F Pulse Rate 88 99 H Respiratory Rate 20 20 Blood Pressure 105/57 L 114/70 Pulse Oximetry 100 95 95 06/29/18 08:00 06/29/18 10:36 Temperature 98.5 F Pulse Rate 79 Respiratory Rate 21 Blood Pressure 107/57 L Pulse Oximetry 98 98 Intake & Output 06/28/18 06/29/18 06/29/18 18:59 06:59 18:59 Intake Total 350 / 350 1450 / 1450 100 / 100 Balance 350 / 350 1450 / 1450 100 / 100 Weight 61.235 kg 62.5 kg Intake: IV 350 / 350 1450 / 1450 100 / 100 NS Inj 1,000 ML @ 100 mls/hr IV 1000 / 1000 .CONT .Q10H [facility] Rx#:[id number] Zosyn 4.5 GM Premix 4.5 gm In 100 / 100 200 / 200 100 / 100 100 ml @ 200 mls/hr IV.SIG Q6H CL Rx#:[id number] Vancomycin Inj 1,000 MG In NS 250 / 250 250 / 250 Inj 250 ML @ 250 mls/hr IV.SIG Q12H CL Rx#:[id number] Oral 0 / 0 Other: Other Intake Source Saline Solution # Voids 6 Weight On Admission 62.3 kg Narrative: Lower extremity physical exam: Vascular: Dorsalis pedis 2/4, posterior tibial 2/4. Capillary refill time within normal limits to digits X5 bilateral foot. Edema present to left ankle and foot Neuro: Gross sensation intact to bilateral lower extremity. Pinpoint sensation intact. No hyperalgesia noted to bilateral lower extremity Dermatology: Increased redness and erythema noted to left ankle. Dorsal injection site noted with no drainage. No fluctuance or crepitance noted to left ankle joint. Musculoskeletal: Tender to palpation to left ankle globally. Tenderness on passive range of motion, pain on active range of motion. Assessment and Plan - Plan 33-year-old female with septic left ankle, cellulitis to left ankle Patient examined and evaluated with all questions answered Bedside joint aspiration performed 1 cc joint aspirate sent and culture tube to micro No palpable abscess, no abscess noted on MRI White count trending down No surgical intervention planned at this point in time Rosendo to left ankle daily Will sign out to Dr. Donald who will take over care tomorrow Description of procedure: Consent signed and obtained by patient, left ankle aspiration. 20 cc 2% lidocaine plain infiltrated about left ankle and ankle block fashion. Betadine prep to lateral gutter of left ankle. 18-gauge needle with 10 cc syringe utilized to aspirate joint fluid from the lateral aspect of ankle. Joint fluid sent to micro. Left ankle dressed with dry sterile dressing.
--- NOTE | 2018-06-29 11:21 | P.PNFP ---
Subjective Interval history: No acute events overnight. Remains afebrile. Vitals stable. Patient seen and examined this AM. Patient endorses continued pain of her left ankle. Denies fevers or chills. She otherwise does not report specific complaints. <EmeliaulissesluisaJohann - 06/29/18 11:21> Results - Labs Result diagrams: 06/29/18 07:10 06/29/18 07:10 <Josué Sen - 06/29/18 17:56> Abnormal lab results 06/28/18 06/29/18 Range/Units 20:47 07:10 WBC 23.7 H (4.0-11.0) th/mm3 RBC 3.56 L (4.00-5.30) mil/mm3 Hgb 11.0 L D (11.6-15.3) gm/dL Hct 32.2 L (35.0-46.0) % Neut % (Auto) 88.8 H (16.0-70.0) % Lymph % (Auto) 4.5 L (9.0-44.0) % Neut # (Auto) 21.0 H (1.8-7.7) th/mm3 [place] # (Auto) 1.5 H (0.0-0.9) th/mm3 Hep C IgG Ab Reactive H (Nonreactive) Short CBC 06/29/18 Range/Units 07:10 WBC 23.7 H (4.0-11.0) th/mm3 Hgb 11.0 L D (11.6-15.3) gm/dL Hct 32.2 L (35.0-46.0) % Plt Count 192 (150-450) th/mm3 [facility] 06/29/18 07:10 Sodium 136 Potassium 3.7 Chloride 105 Carbon Dioxide 22.5 BUN 9 Creatinine 0.63 Calcium 8.5 <Josué Sen - 06/29/18 17:56> Abnormal lab results 06/28/18 06/28/18 06/28/18 Range/Units 13:15 13:15 13:15 WBC 28.4 H (4.0-11.0) th/mm3 RBC (4.00-5.30) mil/mm3 Hgb (11.6-15.3) gm/dL Hct (35.0-46.0) % MPV 6.8 L (7.0-11.0) fL Neut % (Auto) 90.1 H (16.0-70.0) % Lymph % (Auto) 4.9 L (9.0-44.0) % Neut # (Auto) 25.6 H (1.8-7.7) th/mm3 [place] # (Auto) 1.3 H (0.0-0.9) th/mm3 Sodium 130 L (136-145) meq/L Anion Gap 4 L (5-15) meq/L Estimated GFR 73 L (>89) mL/min POC Glucose (68-110) mg/dl Random Glucose 112 H (74-106) mg/dL Total Bilirubin 1.3 H (0.2-1.0) mg/dL C-Reactive Protein 16.00 H (0.00-0.30) mg/dL Total Protein 8.4 H (6.4-8.2) g/dL Hep C IgG Ab (Nonreactive) 06/28/18 06/28/18 06/29/18 Range/Units 14:05 20:47 07:10 WBC 23.7 H (4.0-11.0) th/mm3 RBC 3.56 L (4.00-5.30) mil/mm3 Hgb 11.0 L D (11.6-15.3) gm/dL Hct 32.2 L (35.0-46.0) % MPV (7.0-11.0) fL Neut % (Auto) 88.8 H (16.0-70.0) % Lymph % (Auto) 4.5 L (9.0-44.0) % Neut # (Auto) 21.0 H (1.8-7.7) th/mm3 [place] # (Auto) 1.5 H (0.0-0.9) th/mm3 Sodium (136-145) meq/L Anion Gap (5-15) meq/L Estimated GFR (>89) mL/min POC Glucose 194 H (68-110) mg/dl Random Glucose (74-106) mg/dL Total Bilirubin (0.2-1.0) mg/dL C-Reactive Protein (0.00-0.30) mg/dL Total Protein (6.4-8.2) g/dL Hep C IgG Ab Reactive H (Nonreactive) Short CBC 06/28/18 06/29/18 Range/Units 13:15 07:10 WBC 28.4 H 23.7 H (4.0-11.0) th/mm3 Hgb 13.7 11.0 L D (11.6-15.3) gm/dL Hct 40.8 32.2 L (35.0-46.0) % Plt Count 223 192 (150-450) th/mm3 BMP 06/28/18 06/29/18 13:15 07:10 Sodium 130 L 136 Potassium 4.2 3.7 Chloride 100 105 Carbon Dioxide 25.9 22.5 BUN 11 9 Creatinine 0.89 0.63 Calcium 9.2 8.5 Liver Function 06/28/18 Range/Units 13:15 Total Bilirubin 1.3 H (0.2-1.0) mg/dL AST 17 (15-37) U/L ALT 15 (10-53) U/L Alkaline Phosphatase 96 (45-117) U/L Albumin 3.7 (3.4-5.0) g/dL <Johann Schmitz - 06/29/18 11:21> - Imaging Impressions Ankle MRI 06/28/18 12:52 CONCLUSION: 1. Diffuse nonspecific soft tissue swelling and edema predominantly involving the anterior, medial and lateral aspects of the ankle. 2. The bony structures and tendons are grossly intact. Chest X-Ray 06/28/18 12:52 CONCLUSION: No acute intrathoracic disease. No significant change. <Johann Schmitz - 06/29/18 11:21> Physical Exam Vital signs: Vital Signs 06/28/18 20:00 06/28/18 20:32 06/29/18 00:00 Temperature 99.0 F 98.4 F Pulse Rate 101 H 88 Respiratory Rate 18 20 Blood Pressure 94/55 L 105/57 L Pulse Oximetry 99 97 100 06/29/18 04:00 06/29/18 07:43 06/29/18 08:00 Temperature 98.2 F 98.5 F Pulse Rate 99 H 79 Respiratory Rate 20 21 Blood Pressure 114/70 107/57 L Pulse Oximetry 95 95 98 06/29/18 10:36 06/29/18 12:00 06/29/18 16:00 Temperature 97.8 F 98.5 F Pulse Rate 101 H 106 H Respiratory Rate 18 18 Blood Pressure 95/60 L 119/71 Pulse Oximetry 98 99 97 Intake & Output 06/28/18 06/29/18 06/29/18 18:59 06:59 18:59 Intake Total 350 / 350 1450 / 1450 2450 / 2450 Balance 350 / 350 1450 / 1450 2450 / 2450 Weight 61.235 kg 62.5 kg Intake: IV 350 / 350 1450 / 1450 2450 / 2450 NS Inj 1,000 ML @ 100 mls/hr IV 1000 / 1000 2000 / 2000 .CONT .Q10H [facility] Rx#:[id number] Zosyn 4.5 GM Premix 4.5 gm In 100 / 100 200 / 200 200 / 200 100 ml @ 200 mls/hr IV.SIG Q6H [facility] Rx#:[id number] Vancomycin Inj 1,000 MG In NS 250 / 250 250 / 250 250 / 250 Inj 250 ML @ 250 mls/hr IV.SIG Q12H [facility] Rx#:[id number] Oral 0 / 0 Other: Other Intake Source Saline Solution # Voids 6 Weight On Admission 62.3 kg <Josué Sen - 06/29/18 17:56> Vital Signs 06/28/18 12:17 06/28/18 15:54 06/28/18 16:00 Temperature 98.8 F Pulse Rate 113 H Respiratory Rate 24 Blood Pressure 115/75 Pulse Oximetry 100 97 97 06/28/18 16:05 06/28/18 20:00 06/28/18 20:32 Temperature 99.0 F Pulse Rate 98 H 101 H Respiratory Rate 18 18 Blood Pressure 102/63 94/55 L Pulse Oximetry 99 97 06/29/18 00:00 06/29/18 04:00 06/29/18 07:43 Temperature 98.4 F 98.2 F Pulse Rate 88 99 H Respiratory Rate 20 20 Blood Pressure 105/57 L 114/70 Pulse Oximetry 100 95 95 06/29/18 08:00 06/29/18 10:36 Temperature 98.5 F Pulse Rate 79 Respiratory Rate 21 Blood Pressure 107/57 L Pulse Oximetry 98 98 Intake & Output 06/28/18 06/29/18 06/29/18 18:59 06:59 18:59 Intake Total 350 / 350 1450 / 1450 100 / 100 Balance 350 / 350 1450 / 1450 100 / 100 Weight 61.235 kg 62.5 kg Intake: IV 350 / 350 1450 / 1450 100 / 100 NS Inj 1,000 ML @ 100 mls/hr IV 1000 / 1000 0 / 0 .CONT .Q10H [facility] Rx#:[id number] Zosyn 4.5 GM Premix 4.5 gm In 100 / 100 200 / 200 100 / 100 100 ml @ 200 mls/hr IV.SIG Q6H [facility] Rx#:[id number] Vancomycin Inj 1,000 MG In NS 250 / 250 250 / 250 Inj 250 ML @ 250 mls/hr IV.SIG Q12H [facility] Rx#:[id number] Oral 0 / 0 Other: Other Intake Source Saline Solution # Voids 6 Weight On Admission 62.3 kg <Johann Schmitz - 06/29/18 11:21> Narrative: General: Well-developed, alert, and in no acute distress. Appears stated age HEENT: Atraumatic, non-icteric sclera and no conjunctival injection, moist mucous membranes. Multiple excoriations on face Neck: Supple, non-tender without masses or lymphadenopathy, trachea midline Cardiac: Regular rate and rhythm without murmurs Pulmonary: Non-labored breathing. Lungs clear to auscultation bilaterally with good air movement Abdomen: soft and non-tender without rebound or guarding Extremities: Capillary refill less than 2 seconds bilaterally. Concentric, tense erythema and edema to the left ankle. Unable to assess movement of the ankle and foot secondary to pain. Patient unable to wiggle toes. Erythema extending to the forefoot to the distal tibia of the left foot. DP pulse is palpable. <Johann Schmitz - 06/29/18 11:21> Assessment and Plan - Assessment (1) Septic arthritis Code(s): M00.9 - Pyogenic arthritis, unspecified Status: Acute (2) Sepsis Code(s): A41.9 - Sepsis, unspecified organism Status: Acute (3) IV drug abuse Code(s): F19.10 - Other psychoactive substance abuse, uncomplicated Status: Acute (4) Hepatitis C Code(s): B19.20 - Unspecified viral hepatitis C without hepatic coma Status: Acute <Josué Sen - 06/29/18 17:56> (1) Septic arthritis Code(s): M00.9 - Pyogenic arthritis, unspecified Status: Acute (2) Sepsis Code(s): A41.9 - Sepsis, unspecified organism Status: Acute (3) IV drug abuse Code(s): F19.10 - Other psychoactive substance abuse, uncomplicated Status: Acute (4) Hepatitis C Code(s): B19.20 - Unspecified viral hepatitis C without hepatic coma Status: Acute <Johann Schmitz - 06/29/18 11:12> - Assessment and Plan Cellulitis/septic ankle/Sepsis -MRI showed anterior, lateral, and medial inflammation -Leukocytosis of 28 and heart rate greater than 90, meeting SIRS criteria with likely source on admission -Podiatry consulted, appreciate recommendations - s/p bedside joint aspiration performed this AM for culture - no surgical intervention at this time -Continue Vancomycin and Zosyn -Morphine 2 mg IV every 3 hours as needed for pain -Fluids as below -Blood cultures no growth to date IV drug abuse -History noticeable for methamphetamine and heroin use -HIV negative Hepatitis C, previously known -Tested positive at prior hospitalization -LFTs normal today -Hepatitis panel positive for Hep C IgG antibody Fluids: Normal saline at 100 cc/hr Electrolytes: monitor and replete as needed Nutrition: regular GI prophylaxis: not indicated VTE prophylaxis: SCD on right leg Disposition: Case management for possible rehab from [facility] <Johann Schmitz - 06/29/18 11:21> - Attending Attestation The exam, history, and the medical decision-making described in the above note were completed with the assistance of the resident physician. I reviewed and agree with the findings presented. I attest that I had a [id number] encounter with the patient on the same day, and personally performed and documented my assessment and findings in the medical record. Sepsis 2/2 Left Ankle Cellulitis Leukocytosis, vitals improving Cont Vanc/Zosyn, pain control Podiatry following, aspiration without enough fluid to culture, apparently not septic joint IVDU blood cx negative @ 24hrs Hepatitis C exposure will not pursue without evidence of sobriety and primary care appreciate CM <Josué Sen - 06/29/18 17:56>
[2018-06-30] MEDS: Morphine Sulfate Inj 2 MG/ML Vial IV.PUSH PRN ×4 (02:07→11:52)
[2018-06-30] MEDS: Piperacil/Tazo 4.5 GM Premix 4.5 GM/100 ML BAG IV.SIG SCH ×4 (02:09→21:45)
[2018-06-30] MEDS: Vancomycin Inj 1,000 MG in Sodium Chlor 0.9% Inj 250 ML IV.SIG SCH ×4 (02:10→22:20)
[2018-06-30 08:37] LABS: Baso % (Auto) 0.1 % (0.0-2.0); Eos # (Auto) 0.1 th/mm3 (0.0-0.4); Eos % (Auto) 0.7 % (0.0-4.0); Hematocrit 29.5 % (35.0-46.0); Hemoglobin 10.1 gm/dL (11.6-15.3); Lymph # (Auto) 1.4 th/mm3 (1.0-4.8); Lymph % (Auto) 9.3 % (9.0-44.0); Mean Corpuscular HGB Conc 34.1 % (32.0-36.0); Mean Corpuscular Hemoglobin 30.6 pg (27.0-34.0); Mean Corpuscular Volume 89.8 fL (80.0-100.0); Mean Platelet Volume 7.3 fL (7.0-11.0); Mono % (Auto) 6.8 % (0.0-8.0); Neut # (Auto) 12.2 th/mm3 (1.8-7.7); Neut % (Auto) 83.1 % (16.0-70.0); Platelet Count 190 th/mm3 (150-450); Red Blood Count 3.28 mil/mm3 (4.00-5.30); Red Cell Distribution Width 13.5 % (11.6-17.2); White Blood Count 14.6 th/mm3 (4.0-11.0)
--- NOTE | 2018-06-30 09:46 | P.PNFP ---
Subjective Interval history: No acute events overnight. Patient lying in bed comfortably. States that her left foot is still hurting. Pain unchanged from admission. Otherwise, patient has no other complaints. She denies chest pain, shortness of breath, fevers, nausea vomiting, and abdominal pain. <Elvira Gallagher T - 06/30/18 10:37> Results - Labs Result diagrams: 06/30/18 08:15 06/30/18 13:30 <Josué Sen - 06/30/18 14:53> Abnormal lab results 06/30/18 06/30/18 Range/Units 08:15 13:30 WBC 14.6 H (4.0-11.0) th/mm3 RBC 3.28 L (4.00-5.30) mil/mm3 Hgb 10.1 L (11.6-15.3) gm/dL Hct 29.5 L (35.0-46.0) % Neut % (Auto) 83.1 H (16.0-70.0) % Neut # (Auto) 12.2 H (1.8-7.7) th/mm3 [place] # (Auto) 1.0 H (0.0-0.9) th/mm3 Chloride 109 H (98-107) meq/L BUN 5 L (7-18) mg/dL Random Glucose 119 H (74-106) mg/dL Calcium 8.2 L (8.5-10.1) mg/dL Short CBC 06/30/18 Range/Units 08:15 WBC 14.6 H (4.0-11.0) th/mm3 Hgb 10.1 L (11.6-15.3) gm/dL Hct 29.5 L (35.0-46.0) % Plt Count 190 (150-450) th/mm3 BMP 06/30/18 13:30 Sodium 141 Potassium 3.8 Chloride 109 H Carbon Dioxide 22.4 BUN 5 L Creatinine 0.59 Calcium 8.2 L <Josué Sen - 06/30/18 14:53> Abnormal lab results 06/30/18 Range/Units 08:15 WBC 14.6 H (4.0-11.0) th/mm3 RBC 3.28 L (4.00-5.30) mil/mm3 Hgb 10.1 L (11.6-15.3) gm/dL Hct 29.5 L (35.0-46.0) % Neut % (Auto) 83.1 H (16.0-70.0) % Neut # (Auto) 12.2 H (1.8-7.7) th/mm3 [place] # (Auto) 1.0 H (0.0-0.9) th/mm3 Short CBC 06/30/18 Range/Units 08:15 WBC 14.6 H (4.0-11.0) th/mm3 Hgb 10.1 L (11.6-15.3) gm/dL Hct 29.5 L (35.0-46.0) % Plt Count 190 (150-450) th/mm3 <Elvira Gallagher T - 06/30/18 09:46> Physical Exam Vital signs: Vital Signs 06/29/18 16:00 06/29/18 18:00 06/29/18 20:00 Temperature 98.5 F 98.4 F Pulse Rate 106 H 96 H 98 H Respiratory Rate 18 18 Blood Pressure 119/71 98/56 L Pulse Oximetry 97 98 06/30/18 00:00 06/30/18 04:00 06/30/18 08:00 Temperature 98.2 F 98.2 F 97.6 F Pulse Rate 74 80 70 Respiratory Rate 16 16 16 Blood Pressure 99/55 L 92/58 L 98/65 L Pulse Oximetry 98 98 98 06/30/18 12:00 Temperature 98.0 F Pulse Rate 56 L Respiratory Rate 16 Blood Pressure 112/68 Pulse Oximetry 99 Intake & Output 06/29/18 06/30/18 06/30/18 18:59 06:59 18:59 Intake Total 3170 / 3170 450 / 450 900 / 900 Output Total 1100 / 1100 Balance 2070 / 2070 450 / 450 900 / 900 Weight 58.9 kg Intake: IV 2450 / 2450 450 / 450 900 / 900 NS Inj 1,000 ML @ 100 mls/hr IV 2000 / 1999 800 / 800 .CONT .Q10H [facility] Rx#:[id number] Zosyn 4.5 GM Premix 4.5 gm In 200 / 200 200 / 200 100 / 100 100 ml @ 200 mls/hr IV.SIG Q6H [facility] Rx#:[id number] Vancomycin Inj 1,000 MG In NS 250 / 250 250 / 250 Inj 250 ML @ 250 mls/hr IV.SIG Q12H [facility] Rx#:[id number] Oral 720 / 720 Output: Urine 1100 / 1100 Other: # Voids 2 Date of Last Bowel Movement 06/29/18 # Bowel Movements 2 <Josué Sen K - 06/30/18 14:53> Vital Signs 06/29/18 10:36 06/29/18 12:00 06/29/18 16:00 Temperature 97.8 F 98.5 F Pulse Rate 101 H 106 H Respiratory Rate 18 18 Blood Pressure 95/60 L 119/71 Pulse Oximetry 98 99 97 06/29/18 18:00 06/29/18 20:00 06/30/18 00:00 Temperature 98.4 F 98.2 F Pulse Rate 96 H 98 H 74 Respiratory Rate 18 16 Blood Pressure 98/56 L 99/55 L Pulse Oximetry 98 98 06/30/18 04:00 06/30/18 08:00 Temperature 98.2 F 97.6 F Pulse Rate 80 70 Respiratory Rate 16 16 Blood Pressure 92/58 L 98/65 L Pulse Oximetry 98 98 Intake & Output 06/29/18 06/30/18 06/30/18 18:59 06:59 18:59 Intake Total 3170 / 3170 450 / 450 Output Total 1100 / 1100 Balance 2070 / 2070 450 / 450 Weight 58.9 kg Intake: IV 2450 / 2450 450 / 450 NS Inj 1,000 ML @ 100 mls/hr IV 1999 / 1999 .CONT .Q10H [facility] Rx#:[id number] Zosyn 4.5 GM Premix 4.5 gm In 200 / 200 200 / 200 100 ml @ 200 mls/hr IV.SIG Q6H [facility] Rx#:[id number] Vancomycin Inj 1,000 MG In NS 250 / 250 250 / 250 Inj 250 ML @ 250 mls/hr IV.SIG Q12H [facility] Rx#:[id number] Oral 720 / 720 Output: Urine 1100 / 1100 Other: # Voids 2 Date of Last Bowel Movement 06/29/18 # Bowel Movements 2 <Elvira Gallagher Gaxiola T - 06/30/18 09:46> Narrative: General: Well-developed, alert, and in no acute distress. Appears older than stated age HEENT: Atraumatic, non-icteric sclera and no conjunctival injection, moist mucous membranes. Multiple excoriations on face Neck: Supple, non-tender without masses or lymphadenopathy, trachea midline Cardiac: Regular rate and rhythm without murmurs Pulmonary: Non-labored breathing. Lungs clear to auscultation bilaterally with good air movement Abdomen: soft and non-tender without rebound or guarding Extremities: Capillary refill less than 2 seconds bilaterally. Left ankle wrapped in bandage. <Elvira Gallagher T - 06/30/18 10:37> Assessment and Plan - Assessment (1) Septic arthritis Code(s): M00.9 - Pyogenic arthritis, unspecified Status: Acute (2) Sepsis Code(s): A41.9 - Sepsis, unspecified organism Status: Acute (3) IV drug abuse Code(s): F19.10 - Other psychoactive substance abuse, uncomplicated Status: Acute (4) Hepatitis C Code(s): B19.20 - Unspecified viral hepatitis C without hepatic coma Status: Acute <Josué Sen Mike - 06/30/18 14:53> (1) Septic arthritis Code(s): M00.9 - Pyogenic arthritis, unspecified Status: Acute (2) Sepsis Code(s): A41.9 - Sepsis, unspecified organism Status: Acute (3) IV drug abuse Code(s): F19.10 - Other psychoactive substance abuse, uncomplicated Status: Acute (4) Hepatitis C Code(s): B19.20 - Unspecified viral hepatitis C without hepatic coma Status: Acute <Elvira Gallagher T - 06/30/18 10:30> - Assessment and Plan 33-year-old female with history of IV drug use sent to the ED with left ankle pain and swelling after shooting phentermine into a vein in that ankle. Currently on broad-spectrum abx. Podiatry following. Cellulitis/septic ankle/Sepsis -Podiatry following, appreciated recommendations. - s/p bedside joint aspiration performed 06/29 - Wound culture and gram stain pending -WBC trending down -Continue Vancomycin and Zosyn, will deescalate abx once cultures are resulted -Morphine 2 mg IV every 3 hours as needed for pain -Blood cultures no growth to date IV drug abuse -History noticeable for methamphetamine and heroin use -HIV negative Hepatitis C, previously known -Hepatitis panel positive for Hep C IgG antibody -Will need to f/u with GI outpatient Fluids: PO hydration Electrolytes: monitor and replete as needed Nutrition: regular GI prophylaxis: not indicated VTE prophylaxis: SCD on right leg Disposition: Case management for possible rehab from [facility] <Elvira Gallagher T - 06/30/18 10:37> - Attending Attestation The exam, history, and the medical decision-making described in the above note were completed with the assistance of the resident physician. I reviewed and agree with the findings presented. I attest that I had a [id number] encounter with the patient on the same day, and personally performed and documented my assessment and findings in the medical record. Patient more lucid today and able to converse well. Facial lesions improving today and ankle cellulitis less tense. still painful to touch but improved. she says she does not pick at her skin when using, she was at least while i was watching today, but she says this is not usual for her. She does not have a PCP but is interested in resources for [facility] etc. she is not ready to have a discussion about working on addiction. Ankle cellulitis improving, cont vanc/zosyn hope to de-escalate tomorrow IVDU no plans to try to stop now HCV if gets connected with primary care, can try to work on the above, then pursue. we discussed today that this can be investigated and usually cured if she is able to get help with her addiction and she understands. Facial lesions may be traumatically self-induced, but could have some impetigo or superinfection, they do seem to be improving. <Josué Sen - 06/30/18 14:53>
[2018-06-30] MEDS: Sod Chloride 0.9% Inj 1,000 ML IV.CONT SCH (10:41)
[2018-06-30] MEDS ORDERED: Pharmacy Ordered Lab Info OTHER ONE (13:45)
[2018-06-30] MEDS ORDERED: Morphine Inj 4 MG/ML Vial IV.PUSH PRN (14:12)
[2018-06-30] MEDS ORDERED: Naloxone Inj 0.4 MG/ML Vial IV.PUSH PRN (14:12)
[2018-06-30 14:26] LABS: Vancomycin,Trough 6.2 mcg/mL (5.0-10.0)
[2018-06-30 14:30] LABS: Anion Gap 10 meq/L (5-15); Blood Urea Nitrogen 5 mg/dL (7-18); Calcium 8.2 mg/dL (8.5-10.1); Carbon Dioxide 22.4 meq/L (21.0-32.0); Chloride 109 meq/L (98-107); Glomerular Filtration Rate Greater Than 89 mL/min (>89); Glucose,Random 119 mg/dL (74-106); Potassium 3.8 meq/L (3.5-5.1); Sodium 141 meq/L (136-145)
[2018-06-30] MEDS ORDERED: Vancomycin Inj 1,000 MG in Sodium Chlor 0.9% Inj 250 ML IV.SIG SCH (15:00)
[2018-06-30] MEDS: Ibuprofen 400 MG Tablet PO SCH ×2 (17:08→23:27)
[2018-06-30 22:01] VITALS: RESP 18
[2018-07-01] MEDS: Piperacil/Tazo 4.5 GM Premix 4.5 GM/100 ML BAG IV.SIG SCH ×3 (01:20→20:33)
[2018-07-01] MEDS: Ibuprofen 400 MG Tablet PO SCH ×3 (06:04→20:33)
[2018-07-01] MEDS: Vancomycin Inj 1,000 MG in Sodium Chlor 0.9% Inj 250 ML IV.SIG SCH ×3 (07:03→20:33)
[2018-07-01 08:41] VITALS: BP 99/74; TEMP 97.5; O2SAT 99
--- NOTE | 2018-07-01 08:43 | P.PNPOD ---
Subjective Interval history: Left ankle infection. Pt states she is still having ankle pain, but it has decreased since admission. She also states that her ROM has increased. She removed her NATHALY wrap because she felt it was too tight. Physical Exam Vital signs: Vital Signs 06/30/18 12:00 06/30/18 16:00 06/30/18 20:00 Temperature 98.0 F 98.4 F 97.5 F L Pulse Rate 57 L 68 62 Respiratory Rate 16 16 18 Blood Pressure 112/68 102/73 Pulse Oximetry 99 98 95 06/30/18 23:13 06/30/18 23:46 07/01/18 03:00 Temperature Pulse Rate 61 62 88 Respiratory Rate Blood Pressure Pulse Oximetry 07/01/18 04:00 Temperature 98.7 F Pulse Rate 85 Respiratory Rate 18 Blood Pressure 113/75 Pulse Oximetry 98 Intake & Output 06/30/18 07/01/18 07/01/18 18:59 06:59 18:59 Intake Total 1250 / 1250 870 / 870 Balance 1250 / 1250 870 / 870 Intake: IV 1250 / 1250 450 / 450 NS Inj 1,000 ML @ 100 mls/hr IV 800 / 800 .CONT .Q10H CL Rx#:[id number] Zosyn 4.5 GM Premix 4.5 gm In 200 / 200 200 / 200 100 ml @ 200 mls/hr IV.SIG Q6H CL Rx#:[id number] Vancomycin Inj 1,000 MG In NS 250 / 250 250 / 250 Inj 250 ML @ 250 mls/hr IV.SIG Q8HR CL Rx#:[id number] Oral 420 / 420 Other: # Voids 3 3 Date of Last Bowel Movement 06/29/18 06/29/18 # Bowel Movements 1 Narrative: Mild/mod edema and erythema to the left ankle. ROM is WNL and smooth. Pain with palpation. No open wounds. Medications and Allergies Active Medications: Active Medications Acetaminophen (Tylenol) 650 mg PO Q4H PRN PRN Reason: Temp > 100.4 Hydrocodone Bitart/Acetaminophen ([place] 5/325) 1 tab PO Q4H PRN PRN Reason: PAIN SCALE 3 TO 5 Hydrocodone Bitart/Acetaminophen ([place] 7.5/325) 1 tab PO Q4H PRN PRN Reason: PAIN SCALE 6 TO 10 Last Admin: 07/01/18 05:17 Dose: 1 tab Piperacillin/Tazobactam/Dextrose (Zosyn 4.5 Gm Premix) 4.5 gm in 100 mls @ 200 mls/hr IV.SIG Q6H CL Last Infusion: 07/01/18 01:50 Dose: Infused Vancomycin HCl 1,000 mg/ (Sodium Chloride) 250 mls @ 250 mls/hr IV.SIG Q8H CL Ibuprofen (Motrin) 400 mg PO Q6HR CL Last Admin: 07/01/18 06:04 Dose: 400 mg Miscellaneous Information ([facility] Ordered Lab Info) 0 each OTHER ONCE ONE Stop: 07/02/18 05:46 Morphine Sulfate (Morphine Inj) 4 mg IV.PUSH Q3H PRN PRN Reason: BREAKTHROUGH PAIN Naloxone HCl (Narcan Inj) 0.4 mg IV.PUSH UNSCH PRN PRN Reason: SEE LABEL COMMENTS Ondansetron HCl (Zofran Inj) 4 mg IV.PUSH Q6H PRN PRN Reason: NAUSEA OR VOMITING Pharmacy Profile Note (Vancomycin Consult Pharmacy) 1 each OTHER UNSCH PRN PRN Reason: Pharmacy to dose Allergies Allergy/AdvReac Type Severity Reaction Status Date / Time *MDRO Multi-Drug Resistant AdvReac Unknown Uncoded 07/16/16 18:52 Organism Home Medications Medication Instructions Recorded Confirmed Type No Known Home Medications 06/28/18 06/28/18 History Results - Labs CBC & Chem 7: 06/30/18 08:15 06/30/18 13:30 Laboratory Results - last 24 hr 06/30/18 13:30 Sodium 141 Potassium 3.8 Chloride 109 H Carbon Dioxide 22.4 Anion Gap 10 BUN 5 L Creatinine 0.59 Estimated GFR Greater than 89 Random Glucose 119 H Calcium 8.2 L Vancomycin Trough 6.2 Microbiology 06/29/18 10:40 Wound - Ankle Gram Stain - Final 06/29/18 10:40 Wound - Ankle Wound Culture - Preliminary No growth in 24 hours 06/28/18 12:50 Blood - Peripheral Aerobic Blood Culture - Preliminary No growth in 2 days 06/28/18 12:50 Blood - Peripheral Anaerobic Blood Culture - Preliminary No growth in 2 days 06/28/18 13:15 Blood - Peripheral Aerobic Blood Culture - Preliminary No growth in 2 days 06/28/18 13:15 Blood - Peripheral Anaerobic Blood Culture - Preliminary No growth in 2 days Assessment and Plan - Assessment (1) Septic arthritis Code(s): M00.9 - Pyogenic arthritis, unspecified Status: Acute - Plan -final joint fluid cxs are pending -WBC is trending down -cont iv abx until cxs are finalized and outpt abx can be determined -ok for d/c from a podiatry standpoint once WBC is below 12 and abx are determined -elevate leg while at rest -WBAT, PT may be beneficial
--- NOTE | 2018-07-01 15:50 | P.AMA ---
AMA Note - Diagnosis (1) Septic arthritis (2) Sepsis (3) IV drug abuse (4) Hepatitis C Recommended Treatment Course: Continued in hospital observation and IV antibiotics with p.o. antibiotics upon discharge and close follow-up AMA Statement: Patient Ana Quinn has decided to leave the hospital against medical advice. This patient has the capacity to refuse care and understands the risks of leaving, including permanent disability and/or , and has had an opportunity to ask questions about his/her condition. The patient has been informed by nursing staff that he/she may return for care at any time, and follow up has been arranged/advised. This patient left AMA before I was notified of her intention, she was found in a locked bathroom by nursing staff with her boyfriend and a tourniquet around her arm. She likely still has active infection of the left ankle at the time of discharge. Discharge Disposition: Against Medical Advice Patient Condition on Discharge: Fair
--- NOTE | 2018-07-01 16:05 | P.PNFP ---
Subjective Interval history: IV was lost overnight, regained this morning via ultrasound with IV access team. Patient reports no new complaints this morning. Her left ankle pain has decreased significantly as has her ROM. She reports putting weight on the ankle , this did cause significant pain, but with interval improvement. <Robert Peterson - 07/01/18 16:05> Results - Labs Result diagrams: 06/30/18 08:15 06/30/18 13:30 <Josué Sen - 07/01/18 16:13> Physical Exam Vital signs: Vital Signs 06/30/18 20:00 06/30/18 23:13 06/30/18 23:46 Temperature 97.5 F L Pulse Rate 62 61 62 Respiratory Rate 18 Blood Pressure Pulse Oximetry 95 07/01/18 03:00 07/01/18 04:00 07/01/18 08:00 Temperature 98.7 F 97.5 F L Pulse Rate 88 85 64 Respiratory Rate 18 18 Blood Pressure 113/75 99/74 L Pulse Oximetry 98 99 Intake & Output 06/30/18 07/01/18 07/01/18 18:59 06:59 18:59 Intake Total 1250 / 1250 870 / 870 350 / 350 Balance 1250 / 1250 870 / 870 350 / 350 Intake: IV 1250 / 1250 450 / 450 350 / 350 NS Inj 1,000 ML @ 100 mls/hr IV 800 / 800 .CONT .Q10H CL Rx#:[id number] Zosyn 4.5 GM Premix 4.5 gm In 200 / 200 200 / 200 100 / 100 100 ml @ 200 mls/hr IV.SIG Q6H CL Rx#:[id number] Vancomycin Inj 1,000 MG In NS 250 / 250 250 / 250 250 / 250 Inj 250 ML @ 250 mls/hr IV.SIG Q8H CL Rx#:[id number] Oral 420 / 420 Other: # Voids 3 3 Date of Last Bowel Movement 06/29/18 06/29/18 06/30/18 # Bowel Movements 1 <Josué Sen - 07/01/18 16:13> Vital Signs 06/30/18 16:00 06/30/18 20:00 06/30/18 23:13 Temperature 98.4 F 97.5 F L Pulse Rate 68 62 61 Respiratory Rate 16 18 Blood Pressure 102/73 Pulse Oximetry 98 95 06/30/18 23:46 07/01/18 03:00 07/01/18 04:00 Temperature 98.7 F Pulse Rate 62 88 85 Respiratory Rate 18 Blood Pressure 113/75 Pulse Oximetry 98 07/01/18 08:00 Temperature 97.5 F L Pulse Rate 64 Respiratory Rate 18 Blood Pressure 99/74 L Pulse Oximetry 99 Intake & Output 06/30/18 07/01/18 07/01/18 18:59 06:59 18:59 Intake Total 1250 / 1250 870 / 870 350 / 350 Balance 1250 / 1250 870 / 870 350 / 350 Intake: IV 1250 / 1250 450 / 450 350 / 350 NS Inj 1,000 ML @ 100 mls/hr IV 800 / 800 .CONT .Q10H CL Rx#:[id number] Zosyn 4.5 GM Premix 4.5 gm In 200 / 200 200 / 200 100 / 100 100 ml @ 200 mls/hr IV.SIG Q6H CL Rx#:[id number] Vancomycin Inj 1,000 MG In NS 250 / 250 250 / 250 250 / 250 Inj 250 ML @ 250 mls/hr IV.SIG Q8H CL Rx#:[id number] Oral 420 / 420 Other: # Voids 3 3 Date of Last Bowel Movement 06/29/18 06/29/18 06/30/18 # Bowel Movements 1 <Robert Peterson - 07/01/18 16:05> Narrative: General: Well-developed, alert, and in no acute distress. Appears older than stated age HEENT: Atraumatic, moist mucous membranes. Multiple excoriations on face Neck: Supple, non-tender without masses or lymphadenopathy, trachea midline Cardiac: Regular rate and rhythm without murmurs Pulmonary: Non-labored breathing. Lungs clear to auscultation bilaterally with good air movement Abdomen: soft and non-tender without rebound or guarding Extremities: Capillary refill less than 2 seconds bilaterally. 2+ pedal pulses. Left ankle with concentric edema, with significant interval improvement. Diffuse tenderness to palpation. Normal flexion and extension. Normal eversion , pain on full inversion. <Robert Peterson - 07/01/18 16:05> Assessment and Plan - Assessment (1) Septic arthritis Code(s): M00.9 - Pyogenic arthritis, unspecified Status: Acute (2) Sepsis Code(s): A41.9 - Sepsis, unspecified organism Status: Acute (3) IV drug abuse Code(s): F19.10 - Other psychoactive substance abuse, uncomplicated Status: Chronic (4) Hepatitis C Code(s): B19.20 - Unspecified viral hepatitis C without hepatic coma Status: Chronic <FrancyJosué - 07/01/18 16:13> (1) Septic arthritis Code(s): M00.9 - Pyogenic arthritis, unspecified Status: Acute (2) Sepsis Code(s): A41.9 - Sepsis, unspecified organism Status: Acute (3) IV drug abuse Code(s): F19.10 - Other psychoactive substance abuse, uncomplicated Status: Chronic (4) Hepatitis C Code(s): B19.20 - Unspecified viral hepatitis C without hepatic coma Status: Chronic <Robert Peterson - 07/01/18 16:05> - Assessment and Plan 33-year-old female with history of IV drug use sent to the ED with left ankle pain and swelling after shooting phentermine into a vein in that ankle. Currently on broad-spectrum abx. Podiatry following. Cellulitis/septic ankle/Sepsis -Podiatry following, appreciated recommendations. - s/p bedside joint aspiration performed 06/29 - Wound culture negative for 48 hours -WBC trending down at 14.6 today -Continue Vancomycin and Zosyn, will deescalate abx once cultures are resulted -Saunemin for pain -Blood cultures no growth to date IV drug abuse -History of methamphetamine and heroin use -HIV negative Hepatitis C, previously known -Hepatitis panel positive for Hep C IgG antibody -Will need to f/u with GI outpatient Fluids: PO hydration Electrolytes: monitor and replete as needed Nutrition: regular GI prophylaxis: not indicated VTE prophylaxis: SCD on right leg Disposition: Left AMA today without time for discussion with physician. <Robert Peterson - 07/01/18 16:05> - Attending Attestation The exam, history, and the medical decision-making described in the above note were completed with the assistance of the resident physician. I reviewed and agree with the findings presented. I attest that I had a [id number] encounter with the patient on the same day, and personally performed and documented my assessment and findings in the medical record. Saw patient this AM, explained plan to de-escalate abx tomorrow with a hopeful discharge and she seemed happy with the plan. Ankle still erythematous with ruptured bullae but improving. Resident received call this AM saying that patient had left. <Josué Sen - 07/01/18 16:13>
[2018-07-01 16:14] VITALS: PULSE 49
[2018-07-02] MEDS ORDERED: Pharmacy Ordered Lab Info OTHER ONE (05:45)
== END 2018-07-01 12:05 | disposition left against medical advice (07) ==
LOC: NEPD 12:06 → NEDA 15:16 → N04 19:03
PROVIDERS: ADMIT Family Medicine; ATTEND Family Medicine